=== PATIENT | female | born 1975 | race African-American/Black ===

== ENCOUNTER 2017-01-19 05:23 | Emergency (ER) | payer SELFPAY ==
--- NOTE | 2017-01-19 06:37 | ER Document Report ---
ED Extremity Problem, Lower - General Chief Complaint: Foot Pain Stated Complaint: FOOT PAIN Time Seen by Provider: 01/19/17 06:29 Notes: 41-year-old previously healthy female presents with right foot pain. It awoke her from sleep at 3:00 this morning. Throbbing sensation over the top of her foot with radiation laterally towards her knee. Denies any injury or trauma. No swelling or redness. No fever. No chest pain or breathing difficulty. No alleviating or exacerbating symptoms. TRAVEL OUTSIDE OF THE [place] IN LAST 30 DAYS: No - Related Data Allergies/Adverse Reactions: No Known Allergies Allergy (Verified 01/19/17 05:24) Past Medical History - General Last Menstrual Period: 01/03/2017 - Social History Smoking Status: Never Smoker Cigarette use (# per day): No Chew tobacco use (# tins/day): No Frequency of alcohol use: None Drug Abuse: None Family History: None Patient has suicidal ideation: No Patient has homicidal ideation: No Endocrine Medical History: Reports: Hx Diabetes Mellitus Type 2 Renal/ Medical History: Denies: Hx Peritoneal Dialysis - Immunizations Immunizations up to date: No Hx Diphtheria, Pertussis, Tetanus Vaccination: No Review of Systems - Review of Systems -: Yes All other systems reviewed and negative Physical Exam - Vital signs Vitals: Temp Pulse Resp BP Pulse Ox 98.1 F 96 18 140/88 H 98 01/19/17 05:27 01/19/17 05:27 01/19/17 05:27 01/19/17 05:27 01/19/17 05:27 - Notes Notes: GENERAL: VS as per nursing doc. Well-appearing, well-nourished and in no acute distress. HEAD: Atraumatic, normocephalic. EYES: Sclera anicteric, no conjunctival injection or discharge. ENT: Nares patent, oropharynx clear without exudates, moist mucous membranes. NECK: Supple LUNGS: Breath sounds clear to auscultation bilaterally and equal. No wheezes rales or rhonchi. HEART: Regular rate and rhythm without murmurs. ABDOMEN: Soft, non-tender BACK: No lumbar tenderness EXTREMITIES: Normal range of motion, no calf tenderness, no edema. No erythema. Area of discomfort is the dorsum of the foot which shows no asymmetry compared with the other foot. Neurovascularly intact distally. No evidence of ischemia. No pain with range of motion or palpation. Ankle and knee joint nontender without effusion. NEUROLOGICAL: Normal speech. Normal sensory and motor exams. No gross cerebellar abnormalities. PSYCH: Normal mood, normal affect. SKIN: Warm, dry, normal turgor, no lesions noted. Course - Re-evaluation Re-evalutation: 01/19/17 06:36 Objectively I do not see any significant abnormalities. Patient understands warning signs to watch for including any signs of infection. No evidence of DVT as this appears more to the dorsum of the foot and the calf is not involved. - Vital Signs Vital signs: Temp Pulse Resp BP Pulse Ox 98.1 F 96 18 140/88 H 98 01/19/17 05:27 01/19/17 05:27 01/19/17 05:27 01/19/17 05:27 01/19/17 05:27 Discharge - Discharge Clinical Impression: Foot pain, right Condition: Good Additional Instructions: Contact your primary care physician for follow-up for the next 2-3 days. Use an anti-inflammatory such as ibuprofen or Aleve for discomfort. Forms: Elevated Blood Pressure
[2017-01-19 07:01] VITALS: BP 135/80
== END 2017-01-19 06:48 | disposition home or self-care (01) ==
LOC: ER 05:23
DX: M79.671 Pain in right foot (principal); E11.9 Type 2 diabetes mellitus without complications
CPT/HCPCS: 99283

== ENCOUNTER 2017-05-07 22:03 | Emergency (ER) | payer OTHER ==
[2017-05-07 22:12] VITALS: BP 149/97
--- NOTE | 2017-05-07 22:51 | ER Document Report ---
ED General - General Chief Complaint: High Blood Sugar Stated Complaint: BLOOD SUGAR PROBLEMS Time Seen by Provider: 05/07/17 22:50 Mode of Arrival: Ambulatory Information source: Patient Notes: 41-year-old drove herself to ER, female had a feeling come over her while she was work at [employer] 45 minutes prior to arrival that scared her and she was afraid she was going to go into a diabetic coma. She developed a 2-1/2/ 5 frontal headache and took some Advil. 10 minutes later she felt like she wanted to fall asleep with sudden onset of fatigue. She then had lightheadedness, nausea, and vomited once. She then developed jitteriness and anxiousness which she feels now and the headache is mild at 1/5. History of tubal ligation. [facility] She does not take any medications. TRAVEL OUTSIDE OF THE [place] IN LAST 30 DAYS: No - Related Data Allergies/Adverse Reactions: No Known Allergies Allergy (Verified 01/19/17 05:24) Past Medical History - General Information source: Patient - Social History Smoking Status: Never Smoker Frequency of alcohol use: None Drug Abuse: None Lives with: Family Family History: None Endocrine Medical History: Reports: Hx Diabetes Mellitus Type 2 - prediabetic Renal/ Medical History: Denies: Hx Peritoneal Dialysis Past Surgical History: Reports: Hx Tubal Ligation - Immunizations Immunizations up to date: No Hx Diphtheria, Pertussis, Tetanus Vaccination: No Review of Systems - Review of Systems Constitutional: See HPI EENT: No symptoms reported Cardiovascular: No symptoms reported Respiratory: No symptoms reported Gastrointestinal: See HPI Genitourinary: No symptoms reported Female Genitourinary: No symptoms reported Musculoskeletal: No symptoms reported Skin: No symptoms reported Hematologic/Lymphatic: No symptoms reported Neurological/Psychological: See HPI Physical Exam - Vital signs Vitals: Temp Pulse Resp BP Pulse Ox 97.6 F 91 18 149/97 H 96 05/07/17 22:09 05/07/17 22:09 05/07/17 22:09 05/07/17 22:09 05/07/17 22:09 Interpretation: Normal, Hypertensive - General General appearance: Appears well, Alert, Anxious In distress: None - HEENT Head: Normocephalic, Atraumatic Eyes: Normal Conjunctiva: Normal Pupils: PERRL Mucous membranes: Normal Pharynx: Normal Neck: Supple. No: Lymphadenopathy, Thyromegally - Respiratory Respiratory status: No respiratory distress Chest status: Nontender Breath sounds: Normal Chest palpation: Normal - Cardiovascular Rhythm: Regular Heart sounds: Normal auscultation Murmur: No - Abdominal Inspection: Normal Distension: No distension Bowel sounds: Normal Tenderness: Nontender Organomegaly: No organomegaly - Back Back: Normal, Nontender. No: CVA tenderness - Extremities General upper extremity: Normal inspection, Nontender, Normal color, Normal ROM , Normal temperature General lower extremity: Normal inspection, Nontender, Normal color, Normal ROM , Normal temperature, Normal weight bearing. No: Dago's sign - Neurological Neuro grossly intact: Yes Cognition: Normal Orientation: AAOx4 Ayden Coma Scale Eye Opening: Spontaneous Ayden Coma Scale Verbal: Oriented Colby Coma Scale Motor: Obeys Commands Colby Coma Scale Total: 15 Speech: Normal Motor strength normal: LUE, RUE, LLE, RLE Sensory: Normal - Psychological Associated symptoms: Normal affect, Anxious - Skin Skin Temperature: Warm Skin Moisture: Dry Skin Color: Normal Skin irregularity: negative: Rash Course - Re-evaluation Re-evalutation: 05/08/17 00:34 Patient now tells me have a history of anemia the last time she remembers it was 9 something. She has had to have iron infusions in the past and she does not take oral iron at home. Her hemoglobin is 8.5 here with an MCV of 60. The last recorded hemoglobin at [facility] was 8.7 on January 2014. I will tell her to replace her iron orally and to follow-up with litigation legal secretary. 05/08/17 00:35 05/08/17 00:39 ct head is negative. influenza is negative 05/08/17 00:40 - Vital Signs Vital signs: Temp Pulse Resp BP Pulse Ox 97.6 F 91 18 149/97 H 96 05/07/17 22:09 05/07/17 22:09 05/07/17 22:09 05/07/17 22:09 05/07/17 22:09 - Laboratory Result Diagrams: 05/07/17 23:40 05/07/17 23:40 Laboratory results interpreted by me: 05/07/17 05/07/17 05/08/17 23:40 23:40 00:00 WBC 10.8 H Hgb 8.5 L Hct 28.3 L MCV 60 L MCH 18.0 L MCHC 30.2 L RDW 19.6 H Calcium 10.7 H Urine Protein 30 H Discharge - Discharge Clinical Impression: Elevated blood pressure reading without diagnosis of hypertension Iron (Fe) deficiency anemia Qualifiers: Iron deficiency anemia type: other iron deficiency Qualified Code(s): D50.8 - Other iron deficiency anemias Headache Qualifiers: Headache type: unspecified Headache chronicity pattern: acute headache Intractability: not intractable Qualified Code(s): R51 - Headache Fatigue Qualifiers: Fatigue type: unspecified Qualified Code(s): R53.83 - Other fatigue Condition: Good Disposition: HOME, SELF-CARE Instructions: Anemia, Iron Deficiency ([facility]), Family Physicians / Practices, Fatigue ([facility]), Headache ([facility]), High Blood Pressure ([facility]) Additional Instructions: take over the counter iron twice a day take stool softner so you don't get constipated copy of labs, CT head given to you to er if worse Forms: Return to Work Referrals: CONSTANCE RIZZO MD [ACTIVE STAFF] - 05/11/17
[2017-05-08 00:07] LABS: ALANINE AMINOTRANSFERASE 19 U/L (9-52); ALBUMIN 4.4 g/dL (3.5-5.0); ALKALINE PHOSPHATASE 100 U/L (38-126); ANION GAP 12 (5-19); ASPARTATE AMINO TRANSFERASE 22 U/L (14-36); BILIRUBIN,DIRECT 0.3 mg/dL (0.0-0.4); BILIRUBIN,TOTAL 0.3 mg/dL (0.2-1.3); BLOOD UREA NITROGEN 8 mg/dL (7-20); CALCIUM 10.7 mg/dL (8.4-10.2); CARBON DIOXIDE 26 mmol/L (22-30); CHLORIDE 105 mmol/L (98-107); GLUCOSE 109 mg/dL (75-110); POTASSIUM 4.1 mmol/L (3.6-5.0); SODIUM 143.3 mmol/L (137-145)
[2017-05-08 00:08] LABS: ABSOLUTE EOSINOPHILS # (AUTO) 0.1 10^3/uL (0.0-0.6); ABSOLUTE LYMPHOCYTES (AUTO) 2.3 10^3/uL (0.5-4.7); ABSOLUTE MONOCYTES (AUTO) 0.9 10^3/uL (0.1-1.4); ABSOLUTE NEUT (AUTO) 7.4 10^3/uL (1.7-8.2); BASOPHILS % (AUTO) 0.3 % (0-2); EOSINOPHILS % (AUTO) 0.8 % (0-6); HEMATOCRIT 28.3 % (36.0-47.0); HEMOGLOBIN 8.5 g/dL (12.0-15.5); LYMPHOCYTES % (AUTO) 21.5 % (13-45); MEAN CORPUSCULAR HGB CONC 30.2 g/dL (32.0-36.0); MONOCYTES % (AUTO) 8.7 % (3-13); PLATELET COUNT 356 10^3/uL (150-450); RED BLOOD COUNT 4.74 10^6/uL (3.72-5.28); RED CELL DISTRIBUTION WIDTH 19.6 % (11.5-14.0); SEGMENTED NEUTROPHILS % (AUTO) 68.7 % (42-78); TOTAL CELLS COUNTED % (AUTO) 100 %; WHITE BLOOD COUNT 10.8 10^3/uL (4.0-10.5)
[2017-05-08 00:20] LABS: ANISOCYTOSIS 2+; HYPOCHROMASIA 1+; OVALOCYTES 1+; PLATELET COMMENT ADEQUATE; POIKILOCYTOSIS 1+; POLYCHROMASIA SLIGHT; TARGET CELLS 1+
[2017-05-08 00:21] LABS: MEAN CORPUSCULAR VOLUME 60 fl (80-97)
--- NOTE | 2017-05-08 00:32 | RADIOLOGY REPORT (SQ) ---
EXAM DESCRIPTION: CT HEAD WITHOUT CLINICAL HISTORY: 41 years Female, headache COMPARISON: None. TECHNIQUE: No contrast. This exam was performed according to our departmental dose-optimization program, which includes automated exposure control, adjustment of the mA and/or kV according to patient size and/or use of iterative reconstruction technique. Limitation: Mild motion artifact. FINDINGS: No hemorrhage or infarct. No mass, mass effect, or midline shift. Extra-axial structures appear otherwise grossly intact. IMPRESSION: No acute findings.
[2017-05-08 00:34] LABS: APPEARANCE,URINE CLOUDY; BILIRUBIN,URINE NEGATIVE (NEGATIVE); COLOR,URINE YELLOW; GLUCOSE, URINE NEGATIVE (NEGATIVE); KETONES,URINE NEGATIVE (NEGATIVE); LEUKOCYTE ESTERASE,URINE NEGATIVE (NEGATIVE); NITRITE,URINE NEGATIVE (NEGATIVE); PROTEIN,URINE 30 mg/dL (NEGATIVE); URINE SPECIFIC GRAVITY 1.025; UROBILINOGEN,URINE NEGATIVE mg/dL (<2.0)
[2017-05-08 00:39] LABS: A TYPE INFLUENZA AG NEGATIVE (NEGATIVE); B INFLUENZA AG NEGATIVE (NEGATIVE)
[2017-05-08 11:09] LABS: PATH REVIEW PATHOLOGIST REVIEWED
== END 2017-05-08 01:00 | disposition home or self-care (01) ==
LOC: ER 22:03
DX: R03.0 Elevated blood-pressure reading, without diagnosis of hypertension (principal); D50.9 Iron deficiency anemia, unspecified; R53.83 Other fatigue; R51 Headache; R42 Dizziness and giddiness; R11.2 Nausea with vomiting, unspecified
CPT/HCPCS: 36415; 70450; 80053; 81001; 84703; 85025; 87804; 99284

== ENCOUNTER 2017-11-24 02:52 | Emergency (ER) | payer OTHER ==
[2017-11-24 02:59] VITALS: BP 134/86
[2017-11-24] MEDS ORDERED: PENICILLIN V POTASSIUM 500 MG TABLET PO ONE (03:54)
[2017-11-24] MEDS ORDERED: IBUPROFEN 600 MG TABLET PO ONE (03:55)
[2017-11-24] MEDS ORDERED: LIDOCAINE 2% VISCOUS SOLN 20 ML UDCUP PO ONE (03:55)
[2017-11-24] MEDS ORDERED: HYDROCODONE/ACETAMINOPHEN 5-325 MG (6 TAB/ER DISP) PO PRN (03:57)
--- NOTE | 2017-11-24 03:57 | ER Document Report ---
ED Oral Problem - General Chief Complaint: Toothache Stated Complaint: TOOTHACHE Time Seen by Provider: 11/24/17 03:40 Mode of Arrival: Ambulatory Information source: Patient Notes: Otherwise healthy 41-year-old female presenting with chief complaint of right lower tooth pain at tooth #32. Patient reports that this started hurting about a week ago however at that time it was just a mild nagging pain, patient reports that this morning it has gotten severe. Patient reports she tried taking Tylenol and ibuprofen at home without any relief. TRAVEL OUTSIDE OF THE [place] IN LAST 30 DAYS: No - Related Data Allergies/Adverse Reactions: No Known Allergies Allergy (Verified 01/19/17 05:24) Past Medical History - General Information source: Patient - Social History Smoking Status: Never Smoker Frequency of alcohol use: None Drug Abuse: None Family History: None Endocrine Medical History: Reports: Hx Diabetes Mellitus Type 2 - prediabetic Renal/ Medical History: Denies: Hx Peritoneal Dialysis Past Surgical History: Reports: Hx Tubal Ligation - Immunizations Immunizations up to date: No Hx Diphtheria, Pertussis, Tetanus Vaccination: No Review of Systems - Review of Systems Constitutional: No symptoms reported EENT: See HPI Cardiovascular: No symptoms reported Respiratory: No symptoms reported Gastrointestinal: No symptoms reported Genitourinary: No symptoms reported Female Genitourinary: No symptoms reported Musculoskeletal: No symptoms reported Skin: No symptoms reported Hematologic/Lymphatic: No symptoms reported Neurological/Psychological: No symptoms reported Physical Exam - Vital signs Vitals: Temp Pulse Resp BP Pulse Ox 98.3 F 65 16 134/86 H 97 11/24/17 02:58 11/24/17 02:58 11/24/17 02:58 11/24/17 02:58 11/24/17 02:58 - Notes Notes: PHYSICAL EXAMINATION: GENERAL: Well-appearing, well-nourished and in no acute distress. HEAD: Atraumatic, normocephalic. ENT: Nares patent, oropharynx clear without exudates. Moist mucous membranes. Erythema noted to right lower gumline, no drainable abscess noted. NECK: Normal range of motion, supple without lymphadenopathy Musculoskeletal: Normal range of motion, no pitting or edema. No cyanosis. NEUROLOGICAL: Cranial nerves grossly intact. Normal speech, normal gait. Normal sensory, motor exams PSYCH: Normal mood, normal affect. SKIN: Warm, Dry, normal turgor, no rashes or lesions noted. Course - Re-evaluation Re-evalutation: We will treat patient with penicillin and provide her with some pain medications. Patient will also be instructed to take ibuprofen 600 mg every 6 hours. - Vital Signs Vital signs: Temp Pulse Resp BP Pulse Ox 98.3 F 65 16 134/86 H 97 11/24/17 02:58 11/24/17 02:58 11/24/17 02:58 11/24/17 02:58 11/24/17 02:58 Discharge - Discharge Clinical Impression: Pain, dental Condition: Stable Disposition: HOME, SELF-CARE Additional Instructions: TOOTHACHE: Your pain is due to dental decay. The tooth must be repaired in order for you to feel better. You will, therefore, be referred to a dentist. We do not have dentists on the staff at [facility]. Severe swelling or drainage around a tooth usually means a dental abscess. This also requires evaluation and treatment by the dentist, but antibiotics may be prescribed while awaiting dental treatment. You should be rechecked immediately if you develop major swelling of the face, increasing pain, a lump in the jaw or gums, headache, difficulty swallowing, or fever. ORAL NARCOTIC MEDICATION: You have been given a prescription for pain control. This medication is a narcotic. It's best taken with food, as nausea can result if taken on an empty stomach. Don't operate machinery or drive within six hours of taking this medication. Do not combine this medicine with alcohol, or with any medication which can cause sedation (such as cold tablets or sleeping pills) unless you get permission from the physician. Narcotics tend to cause constipation. If possible, drink plenty of fluids and eat a diet high in fiber and fruits. Please be aware that prescription narcotics also have the potential for abuse. People become addicted to these medications because of the general sense of wellbeing that they induce. This feeling along with a significant reduction in tension, anxiety, and aggression provides a stimulating seductive quality to these drugs. Once your pain is under control, we encourage you to discard your unused narcotics. PENICILLIN V K: You have been given a prescription for Penicillin VK. Your physician has determined that this is the best antibiotic for your condition. Pen VK can be taken with meals, however more of the antibiotic gets into the bloodstream if it's taken on an empty stomach. Penicillin usually has no side effects. However, allergy to penicillins is common. If you have had an allergic reaction to any drug of the penicillin family, you should never take any other penicillin. Notify your doctor at once if you develop hives, itching, swelling, faintness, or shortness of breath. FOLLOW-UP CARE: You have been referred for follow-up care to the dentists listed below. Call the dentists office for an appointment as you were instructed or within the next two days. If you experience worsening or a significant change in your symptoms, notify the physician immediately or return to the Emergency Department at any time for re-evaluation. Prescriptions: Penicillin V Potassium [Penicillin Vk 500 mg Tablet] 500 mg PO BID #20 tablet
== END 2017-11-24 04:17 | disposition home or self-care (01) ==
LOC: ER 02:52
DX: K08.9 Disorder of teeth and supporting structures, unspecified (principal); Z98.51 Tubal ligation status
CPT/HCPCS: 99282; J3490

== ENCOUNTER 2018-07-13 12:13 | Emergency (ER) | payer OTHER ==
[2018-07-13 12:30] VITALS: BP 149/93
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
== END 2018-07-13 13:28 | disposition home or self-care (01) ==
LOC: ER 12:13
DX: S13.9XXA Sprain of joints and ligaments of unspecified parts of neck, initial encounter (principal); M54.2 Cervicalgia; V43.52XA Car driver injured in collision with other type car in traffic accident, initial encounter
CPT/HCPCS: 99283

== ENCOUNTER 2018-09-29 17:34 | Emergency (ER) | payer OTHER ==
[2018-09-29] MEDS ORDERED: TETRACAINE HCL 0.5% OPH SOLN 4 ML OS ONE (19:04)
--- NOTE | 2018-09-29 19:05 | ER Document Report ---
HPI - HPI Patient complains to provider of: right eye pain Time Seen by Provider: 09/29/18 19:04 Onset: Other - thursday Quality of pain: Achy, Throbbing Pain Level: 2 Context: Patient presents to the emergency department with complaints of right eye irritation since Thursday. She does not wear contacts. She reports that she did have a pustule in the right corner and she squeezed it up the other day. Reports when she woke up the next day she did have some matting. No erythema or swelling to the eye. Reports history of styes. No other complaints such as fever vomiting diarrhea. Associated Symptoms: None Exacerbated by: Denies Relieved by: Denies Similar symptoms previously: No Recently seen / treated by doctor: No - REPRODUCTIVE Reproductive: DENIES: : Past Medical History - General Information source: Patient - Social History Smoking Status: Unknown if Ever Smoked Family History: None Patient has suicidal ideation: No Patient has homicidal ideation: No Endocrine Medical History: Reports: Hx Diabetes Mellitus Type 2 - prediabetic Renal/ Medical History: Denies: Hx Peritoneal Dialysis Past Surgical History: Reports: Hx Tubal Ligation - Immunizations Immunizations up to date: No Hx Diphtheria, Pertussis, Tetanus Vaccination: No Vertical Provider Document - CONSTITUTIONAL Agree With Documented VS: Yes Exam Limitations: No Limitations General Appearance: WD/WN, No Apparent Distress - INFECTION CONTROL TRAVEL OUTSIDE OF THE [place] IN LAST 30 DAYS: No - HEENT HEENT: Atraumatic, Normocephalic, PERRLA. negative: Conjuctival Injection - NECK Neck: Supple - RESPIRATORY Respiratory: No Respiratory Distress - CARDIOVASCULAR Cardiovascular: Regular Rate - MUSCULOSKELETAL/EXTREMETIES Musculoskeletal/Extremeties: HEAVEN MEJIA - NEURO Level of Consciousness: Awake, Alert, Appropriate Motor/Sensory: No Motor Deficit - DERM Integumentary: Warm, Dry Course - Re-evaluation Re-evalutation: 09/29/18 19:32 Patient instructed on stye. Instructed to follow-up with enterprise application analyst and instructed not to squeeze the area anymore. She verbalized understanding to all instructions Dictation of this chart was performed using voice recognition software; therefore, there may be some unintended grammatical errors. - Vital Signs Vital signs: Temp Pulse Resp BP Pulse Ox 98.2 F 97 16 139/87 H 98 09/29/18 18:50 09/29/18 18:50 09/29/18 18:50 09/29/18 18:50 09/29/18 18:50 Procedures - Eye Procedure Right Alcaine Drops Administered: Yes - tetracaine Slit lamp used: No Notes: 09/29/18 19:28 Tetracaine applied to patient's right eye. Patient reports no irritation inside the eye. Reports pain and irritations to right upper lid. Small stye noted to the right outer upper eye lid. Eyes picture: 1 - small stye Discharge - Discharge Clinical Impression: Irritation of right eye Stye Qualifiers: Laterality: right Eyelid: upper Qualified Code(s): H00.011 - Hordeolum externum right upper eyelid Condition: Stable Disposition: HOME, SELF-CARE Instructions: Warm Packs ([facility]) Additional Instructions: *You have been evaluated for eye irritation, stye *apply warm packs *Good hand washing- do not squeeze the area *Follow up with an enterprise application analyst within one week [facility] to enterprise application analyst *Return to ED for worsening condition, changes, needs Monitor your blood pressure. Your blood pressure was elevated today. This may be because you were anxious, in pain or because you need medication. It is important to follow up with your primary care provider for full evaluation. Forms: Elevated Blood Pressure
[2018-09-29 19:45] VITALS: BP 141/84
== END 2018-09-29 19:45 | disposition home or self-care (01) ==
LOC: ER 17:34
DX: H00.011 Hordeolum externum right upper eyelid (principal)
CPT/HCPCS: 99283; J3490

== ENCOUNTER 2019-01-29 13:55 | Emergency (ER) | payer OTHER ==
--- NOTE | 2019-01-29 15:43 | ER Document Report ---
HPI - HPI Patient complains to provider of: fall, right knee pain, left wrist pain Time Seen by Provider: 01/29/19 15:21 Pain Level: 3 - CONSTITUTIONAL Constitutional: DENIES: Fever, Chills - EENT EENT: DENIES: Sore Throat, Ear Pain, Eye problems - NEURO Neurology: DENIES: Headache, Weakness, Vision blurred, Dizzinesss / Vertigo - CARDIOVASCULAR Cardiovascular: DENIES: Chest pain - RESPIRATORY Respiratory: DENIES: Trouble Breathing, Coughing - GASTROINTESTINAL Gastrointestinal: DENIES: Abdominal Pain, Black / Bloody Stools - URINARY Urinary: DENIES: Dysuria, Urgency, Frequency - REPRODUCTIVE Reproductive: DENIES: : - MUSCULOSKELETAL Musculoskeletal: REPORTS: Extremity pain Past Medical History - Social History Smoking Status: Never Smoker Chew tobacco use (# tins/day): No Frequency of alcohol use: None Drug Abuse: None Family History: None Patient has suicidal ideation: No Patient has homicidal ideation: No Endocrine Medical History: Reports: Hx Diabetes Mellitus Type 2 - prediabetic Renal/ Medical History: Denies: Hx Peritoneal Dialysis Past Surgical History: Reports: Hx Hysterectomy, Hx Tubal Ligation - Immunizations Immunizations up to date: No Hx Diphtheria, Pertussis, Tetanus Vaccination: No Vertical Provider Document - INFECTION CONTROL TRAVEL OUTSIDE OF THE [place] IN LAST 30 DAYS: No Course - Re-evaluation Re-evalutation: 01/29/19 17:38 Pt here for . advised to f/u with pcp in 1-2 days. return for any worsening symptoms. vss. well appearing. satting well on ra. neurononfocal. pt understands and agrees to plan. On reexam, pt improved with tx listed. remained stable. nontoxic. well appear ing. pain controlled. tolerating po. requesting to go home. case discussed with ER Attending, , who directed and agrees with plan of care and advised no further workup indicated at this time and pt is stable for dc home with close f/u with pcp/specialist. Documentation achieved through voice recording which may lead to some occasional accidental typographical errors. Extensive efforts have been made to proof read documentation to make sure these are the least as possible. Category Date Time Status Splint [Immobilize Extrem/Crutch (ED)] NOW Care 01/29/19 17:37 Ordered KNEE RIGHT 3 VIEWS [RAD] Stat Exams 01/29/19 15:43 Ordered WRIST LEFT 3 VIEWS [RAD] Stat Exams 01/29/19 15:43 Ordered Acetaminophen [Tylenol 325 mg Tablet] Med 01/29/19 15:44 Once 975 mg PO NOW ONE - Vital Signs Vital signs: Temp Pulse Resp BP Pulse Ox 98.1 F 85 18 136/84 H 99 01/29/19 14:05 01/29/19 14:05 01/29/19 14:05 01/29/19 14:05 01/29/19 14:05 - Diagnostic Test Radiology reviewed: Image reviewed, Reports reviewed Radiology results interpreted by me: 01/29/19 17:38 Knee X-Ray 01/29/19 15:43 IMPRESSION: NO FRACTURE. Wrist X-Ray 01/29/19 15:43 IMPRESSION: NO FRACTURE. Discharge - Discharge Clinical Impression: Occult fracture of scaphoid bone of left wrist Qualifiers: Encounter type: initial encounter Fracture type: closed Qualified Code(s): S62.002A - Unspecified fracture of navicular [scaphoid] bone of left wrist, initial encounter for closed fracture Left wrist sprain Qualifiers: Encounter type: initial encounter Qualified Code(s): S63.502A - Unspecified sprain of left wrist, initial encounter Fall Qualifiers: Encounter type: initial encounter Qualified Code(s): W19.XXXA - Unspecified fall, initial encounter Contusion of right knee Qualifiers: Encounter type: initial encounter Qualified Code(s): S80.01XA - Contusion of right knee, initial encounter Condition: Good Disposition: HOME, SELF-CARE Instructions: Possible Hidden Navicular Fracture ([facility]), Sprained Knee ([facility]), Wrist Sprain ([facility]) Additional Instructions: Follow-up with PCP/ortho in 1 to 2 days. Wear the splint until seen by the orthopedist. You may have a fracture in your left wrist that is not showing up right away as discussed given the nature of your injury. Splint care as discussed. Return for any worsening symptoms. tylenol or motrin as needed for any pain or fever if not allergic. take the medication as prescribed. Forms: Special Work Note [facility]errals: [facility] [Primary [facility] Provider] - Follow up in 3-5 days LISA MARTIN MD [ACTIVE STAFF] - Follow up as needed
[2019-01-29] MEDS ORDERED: ACETAMINOPHEN 325 MG TABLET PO ONE (15:44)
--- NOTE | 2019-01-29 16:18 | RADIOLOGY REPORT (SQ) ---
EXAM DESCRIPTION: WRIST LEFT 3 VIEWS COMPLETED DATE/TIME: 01/29/2019 4:01 pm REASON FOR STUDY: foosh injury, pos snuffbox ttp COMPARISON: None. EXAM PARAMETERS: NUMBER OF VIEWS: Three views. TECHNIQUE: AP, lateral and oblique radiographic images acquired of the left wrist. LIMITATIONS: None. FINDINGS: MINERALIZATION: Normal. BONES: No acute fracture or dislocation. No worrisome bone lesions. JOINTS: No effusion. SOFT TISSUES: No significant soft tissue swelling. No radiopaque foreign body. OTHER: No other significant finding. IMPRESSION: NO FRACTURE. TECHNICAL DOCUMENTATION: JOB ID: [id number] [place]-72 2010 [employer]- All Rights Reserved Reading location - IP/workstation name: [email or web address]
--- NOTE | 2019-01-29 16:19 | RADIOLOGY REPORT (SQ) ---
EXAM DESCRIPTION: KNEE RIGHT 3 VIEWS COMPLETED DATE/TIME: 01/29/2019 4:01 pm REASON FOR STUDY: fall, tib plateau pain COMPARISON: None. EXAM PARAMETERS: NUMBER OF VIEWS: Three views. TECHNIQUE: AP, lateral and sunrise radiographic images acquired of the right knee. LIMITATIONS: None. FINDINGS: MINERALIZATION: Normal. BONES: No acute fracture or dislocation. No worrisome bone lesions. JOINTS: No effusion. SOFT TISSUES: No significant soft tissue swelling. No radiopaque foreign body. OTHER: No other significant finding. IMPRESSION: NO FRACTURE. TECHNICAL DOCUMENTATION: JOB ID: [id number] [place]-[id number] 2010 [employer]- All Rights Reserved Reading location - IP/workstation name: [email or web address]
[2019-01-29 17:27] VITALS: BP 139/92
== END 2019-01-29 17:53 | disposition home or self-care (01) ==
LOC: ER 13:55
DX: S62.002A Unspecified fracture of navicular [scaphoid] bone of left wrist, initial encounter for closed fracture (principal); S80.01XA Contusion of right knee, initial encounter; M25.561 Pain in right knee; M25.532 Pain in left wrist; W01.0XXA Fall on same level from slipping, tripping and stumbling without subsequent striking against object, initial encounter; Y92.512 Supermarket, store or market as the place of occurrence of the external cause
CPT/HCPCS: 99283

== ENCOUNTER 2019-04-08 09:04 | Day surgery (SDC) | payer OTHER ==
[~2019-04-08 09:04] MED LIST: PROPOFOL INJ 200 MG/20 ML VIAL IV ONE
[2019-04-08 11:07] VITALS: BP 138/90
--- NOTE | 2019-04-08 11:23 | Operative Report ---
Operative Report DATE OF SURGERY: 04/08/19 Operative Report: The risks benefits and alternatives of the procedure explained to the patient in detail and informed consent is obtained.A GIF Olympus video scope was inserted into the patient's mouth and hypopharynx, the esophagus is identified intubated and insufflated, the scope was then advanced through the esophagus stomach and duodenum, retroflexion maneuver is done, the esophagus stomach and first and second portions of the duodenum examined. PREOPERATIVE DIAGNOSIS: Dysphagia POSTOPERATIVE DIAGNOSIS: Esophagitis versus Zuniga's status post biopsy. Gastritis status post biopsy. Hiatal hernia. Schatzki's ring that is broken OPERATION: EGD with biopsy SURGEON: TERRELL WHITNEY ANESTHESIA: LMAC TISSUE REMOVED OR ALTERED: As noted above. COMPLICATIONS: None. ESTIMATED BLOOD LOSS: None. INTRAOPERATIVE FINDINGS: As noted above. PROCEDURE: Patient tolerated the procedure well. No immediate postprocedure complications are noted. Patient is discharged in good condition. Discharge date 04/08/2019. Discharge diet: Regular. Discharge activity: Regular. 2 to 3-week follow-up to discuss findings. Patient is instructed to call the office or proceed to the emergency room should there be any further questions. Wait on the pathology.
== END 2019-04-08 11:06 | disposition home or self-care (01) ==
LOC: END 09:04
PROVIDERS: ATTEND Internal Medicine Gastroenterology
DX: K44.9 Diaphragmatic hernia without obstruction or gangrene (principal); K22.2 Esophageal obstruction; K29.50 Unspecified chronic gastritis without bleeding; B96.81 Helicobacter pylori [H. pylori] as the cause of diseases classified elsewhere; E78.5 Hyperlipidemia, unspecified; E66.9 Obesity, unspecified; Z68.39 Body mass index [BMI] 39.0-39.9, adult
CPT/HCPCS: 43239; 88342 ×2; 88305 ×2; 00731; J2704; 731

== ENCOUNTER → 2019-11-07 | Outpatient (CLI) | payer OTHER ==
--- NOTE | 2019-11-07 17:05 | RADIOLOGY REPORT (SQ) ---
EXAM DESCRIPTION: WRIST LEFT 3 VIEWS IMAGES COMPLETED DATE/TIME: 11/07/2019 4:30 pm REASON FOR STUDY: CHRONIC PAIN OF LEFT WRIST M25.532 PAIN IN LEFT WRIST COMPARISON: 01/29/2019 NUMBER OF VIEWS: Three views. TECHNIQUE: AP, lateral, and oblique radiographic images acquired of the left wrist. LIMITATIONS: None. FINDINGS: MINERALIZATION: Normal. BONES: No acute fracture or dislocation. No worrisome bone lesions. Normal alignment. SOFT TISSUES: No soft tissue swelling. No foreign body. OTHER: No other significant finding. IMPRESSION: No evidence of acute bony abnormality of the left wrist. No significant degenerative change. TECHNICAL DOCUMENTATION: JOB ID: [id number] 2010 [employer]- All Rights Reserved Reading location - IP/workstation name: [email or web address]
== END ==
LOC: OD 16:11
PROVIDERS: ATTEND Family Medicine
DX: M25.532 Pain in left wrist (principal)

== ENCOUNTER → 2019-11-09 | Outpatient (CLI) | payer OTHER ==
--- NOTE | 2019-11-09 10:56 | WOMENS IMAGING REPORT ---
EXAM DESCRIPTION: 3D SCREENING MAMMO BILAT IMAGES COMPLETED DATE/TIME: 11/09/2019 9:14 am REASON FOR STUDY: Z12.31 ENCNTR SCREEN MAMMOGRAM FOR MALIGNANT NEOPLASM OF BREAST Z12.31 ENCNTR SCR EEN MAMMOGRAM FOR MALIGNANT NEOPLASM OF JAYNE COMPARISON: None. EXAM PARAMETERS: Standard craniocaudal and mediolateral oblique views of each breast recorded using digital acquisition and breast tomosynthesis. Read with the assistance of CAD. .[facility] - [employer] Touch Up Painter Version 9.2 LIMITATIONS: None. FINDINGS: Findings present which are benign by mammographic criteria. No suspicious masses, calcific ations or architectural distortion. Pertinent benign findings: Multiple similar size, well-circumscribed nodular densities are seen bilat erally. Benign mammographic findings may include one or more of the following: Smooth masses, popcorn/rim/coa rse calcifications, asymmetries, post-procedure changes, and lesions with long-standing stability. IMPRESSION: BENIGN MAMMOGRAPHIC FINDINGS. BIRADS 2 BREAST DENSITY: b. There are scattered areas of fibroglandular density. BIRAD: ASSESSMENT: 2 BENIGN FINDING(S) RECOMMENDATION: ROUTINE SCREENING COMMENT: The patient has been notified of the results by letter per MQSA requirements. Additional no tification policies are in place for contacting patient with suspicious or incomplete findings. Quality ID #[id number]: The [employer] recommends an annual screening mammogram for women aged 40 years or over. This facility utilizes a reminder system to ensure that all patients receive reminder letters, and/or direct phone calls for appointments. This includes reminders for routine scr eening mammograms, diagnostic mammograms, or other Breast Imaging Interventions when appropriate. Th is patient will be placed in the appropriate reminder system. TECHNICAL DOCUMENTATION: FINDING NUMBER: (1) ASSESSMENT: (1) JOB ID: [id number] 2010 [employer]- All Rights Reserved Reading location - IP/workstation name: [email or web address]
== END ==
LOC: WI 08:30
PROVIDERS: ATTEND Family Medicine
DX: Z12.31 Encounter for screening mammogram for malignant neoplasm of breast (principal)
CPT/HCPCS: 77063; 77067

== ENCOUNTER 2019-11-25 00:36 | Emergency (ER) | payer OTHER ==
--- NOTE | 2019-11-25 00:57 | ER Document Report ---
ED Medical Screen (RME) - General Chief Complaint: Leg Swelling Stated Complaint: LEFT LEG SWELLING Time Seen by Provider: 11/25/19 00:51 Primary Care Provider: MADHURI HART DO [Primary Care Provider] - Follow up as needed Notes: Patient presents complaining of lower extremity swelling that started yesterday. Patient reports left leg is more swollen than the right. Patient does report some exertional shortness of breath. Patient denies any cough cold symptoms or chest pain. I have greeted and performed a rapid initial assessment of this patient. A comprehensive ED assessment and evaluation of the patient, analysis of test results and completion of the medical decision making process will be conducted by additional ED providers. TRAVEL OUTSIDE OF THE [place] IN LAST 30 DAYS: No - Related Data Allergies/Adverse Reactions: No Known Allergies Allergy (Verified 04/08/19 09:06) Past Medical History - Social History Family history: Reviewed & Not Pertinent - Past Medical History Cardiac Medical History: Denies: Hx Coronary Artery Disease, Hx Heart Attack, Hx Hypertension Pulmonary Medical History: Reports: Hx Bronchitis Denies: Hx Asthma, Hx COPD, Hx Pneumonia Neurological Medical History: Denies: Hx Cerebrovascular Accident, Hx Seizures Endocrine Medical History: Reports: Hx Diabetes Mellitus Type 2 - prediabetic Renal/ Medical History: Denies: Hx Peritoneal Dialysis Musculoskeltal Medical History: Denies Hx Arthritis Past Surgical History: Reports: Hx Hysterectomy, Hx Tubal Ligation - Immunizations Immunizations up to date: No Hx Diphtheria, Pertussis, Tetanus Vaccination: No Physical Exam - Vital signs Vitals: Temp Pulse Resp BP Pulse Ox 98.5 F 76 16 147/93 H 100 11/25/19 00:43 11/25/19 00:43 11/25/19 00:43 11/25/19 00:43 11/25/19 00:43 - General General appearance: Appears well, Alert Notes: Bilateral lower extremity edema, left worse than right - Respiratory Respiratory status: No respiratory distress Breath sounds: Normal Course - Vital Signs Vital signs: Temp Pulse Resp BP Pulse Ox 98.5 F 76 16 147/93 H 100 11/25/19 00:43 11/25/19 00:43 11/25/19 00:43 11/25/19 00:43 11/25/19 00:43 Doctor's Discharge - Discharge Referrals: MADHURI HART DO [Primary Care Provider] - Follow up as needed
[2019-11-25 03:12] LABS: ABSOLUTE EOSINOPHILS # (AUTO) 0.1 10^3/uL (0.0-0.6); ABSOLUTE LYMPHOCYTES (AUTO) 3.5 10^3/uL (0.5-4.7); ABSOLUTE MONOCYTES (AUTO) 0.6 10^3/uL (0.1-1.4); ABSOLUTE NEUT (AUTO) 3.7 10^3/uL (1.7-8.2); BASOPHILS % (AUTO) 0.4 % (0-2); EOSINOPHILS % (AUTO) 1.8 % (0-6); HEMATOCRIT 33.1 % (36.0-47.0); HEMOGLOBIN 10.4 g/dL (12.0-15.5); LYMPHOCYTES % (AUTO) 44.2 % (13-45); MEAN CORPUSCULAR HEMOGLOBIN 21.7 pg (27.0-33.4); MEAN CORPUSCULAR HGB CONC 31.4 g/dL (32.0-36.0); MEAN CORPUSCULAR VOLUME 69 fl (80-97); MONOCYTES % (AUTO) 6.9 % (3-13); PLATELET COUNT 274 10^3/uL (150-450); RED CELL DISTRIBUTION WIDTH 17.3 % (11.5-14.0); SEGMENTED NEUTROPHILS % (AUTO) 46.7 % (42-78); TOTAL CELLS COUNTED % (AUTO) 100 %
[2019-11-25 03:28] LABS: ALBUMIN 4.1 g/dL (3.5-5.0); ALKALINE PHOSPHATASE 118 U/L (38-126); ANION GAP 7 (5-19); ASPARTATE AMINO TRANSFERASE 36 U/L (14-36); BILIRUBIN,TOTAL 0.4 mg/dL (0.2-1.3); BLOOD UREA NITROGEN 12 mg/dL (7-20); CALCIUM 9.1 mg/dL (8.4-10.2); CARBON DIOXIDE 26 mmol/L (22-30); CHLORIDE 106 mmol/L (98-107); GLUCOSE 119 mg/dL (75-110); TOTAL PROTEIN 7.4 g/dL (6.3-8.2)
--- NOTE | 2019-11-25 03:39 | RADIOLOGY REPORT (SQ) ---
EXAM DESCRIPTION: [employer]Lex: XR CHEST 1 VIEW CLINICAL HISTORY: 43 years Female; exertional sob, LE edema; COMPARISON: None. FINDINGS: Lungs: Lungs are clear, with no focal infiltrate, pneumothorax, or pleural effusion. Mediastinum: Mediastinum is within normal limits for this positioning. Bones: Bony structures are unremarkable. IMPRESSION: 1. No acute pulmonary findings.
[2019-11-25] MEDS ORDERED: IBUPROFEN 800 MG TABLET PO ONE (06:53)
[2019-11-25 07:25] LABS: APPEARANCE,URINE SLIGHTLY-CLOUDY; BILIRUBIN,URINE NEGATIVE (NEGATIVE); COLOR,URINE YELLOW; GLUCOSE, URINE NEGATIVE (NEGATIVE); KETONES,URINE NEGATIVE (NEGATIVE); LEUKOCYTE ESTERASE,URINE NEGATIVE (NEGATIVE); NITRITE,URINE NEGATIVE (NEGATIVE); PROTEIN,URINE NEGATIVE (NEGATIVE); URINE SPECIFIC GRAVITY 1.029
--- NOTE | 2019-11-25 09:21 | ER Document Report ---
Entered by LION MCDONALD SCRIBE 11/25/19 0658 Acting as scribe for:AL ORANTES MD ED Extremity Problem, Lower - General Chief Complaint: Feet Swelling Stated Complaint: LEFT LEG SWELLING Time Seen by Provider: 11/25/19 00:51 Primary Care Provider: MADHURI HART DO [Primary Care Provider] - Follow up as needed Information source: Patient Notes: This 43 year old female patient presents to the emergency department today with complaints of swelling in her lower extremities L>R. Patient states this began yesterday with swelling in her feet and then it traveled up her calves. Denies pain in LE or standing more than usual. Patient denies chest pain and reports shortness of breath only when climbing up stairs. Patient reports gaining x22 pounds the last x2 months. TRAVEL OUTSIDE OF THE [place] IN LAST 30 DAYS: No - Related Data Allergies/Adverse Reactions: No Known Allergies Allergy (Verified 04/08/19 09:06) Home Medications: motrin prn Past Medical History - General Information source: Patient - Social History Smoking Status: Never Smoker Cigarette use (# per day): No Family History: None Patient has homicidal ideation: No Pulmonary Medical History: Reports: Hx Bronchitis Endocrine Medical History: Reports: Hx Diabetes Mellitus Type 2 - prediabetic Past Surgical History: Reports: Hx Hysterectomy, Hx Tubal Ligation - Immunizations Immunizations up to date: No Hx Diphtheria, Pertussis, Tetanus Vaccination: No Review of Systems - Review of Systems Constitutional: See HPI, Weight gain EENT: No symptoms reported Cardiovascular: See HPI. denies: Chest pain Respiratory: See HPI, Short of breath Gastrointestinal: No symptoms reported Genitourinary: No symptoms reported Female Genitourinary: No symptoms reported Musculoskeletal: See HPI, Leg swelling - L>R Skin: No symptoms reported Hematologic/Lymphatic: No symptoms reported Neurological/Psychological: No symptoms reported -: Yes All other systems reviewed and negative Physical Exam - Vital signs Vitals: Temp Pulse Resp BP Pulse Ox 98.5 F 76 16 147/93 H 100 11/25/19 00:43 11/25/19 00:43 11/25/19 00:43 11/25/19 00:43 11/25/19 00:43 - General General appearance: Appears well, Alert - HEENT Head: Normocephalic, Atraumatic Eyes: Normal Pupils: PERRL - Respiratory Respiratory status: No respiratory distress Chest status: Nontender Breath sounds: Normal Chest palpation: Normal - Cardiovascular Rhythm: Regular Heart sounds: Normal auscultation Murmur: No - Abdominal Inspection: Obese Distension: No distension Bowel sounds: Normal Tenderness: Nontender - Extremities General upper extremity: Normal inspection. No: Edema Notes: Non-pitting edema of bilateral lower extremities. No tenderness with palpation to bilateral calves. - Neurological Neuro grossly intact: Yes Cognition: Normal Orientation: AAOx4 Speech: Normal - Psychological Associated symptoms: Normal affect, Normal mood - Skin Skin Temperature: Warm Skin Moisture: Dry Skin Color: Normal Course - Re-evaluation Re-evalutation: 11/25/19 09:18 Patient resting comfortably not showing any signs of distress. - Vital Signs Vital signs: Temp Pulse Resp BP Pulse Ox 97.8 F 72 16 153/87 H 98 11/25/19 08:14 11/25/19 08:14 11/25/19 08:14 11/25/19 08:14 11/25/19 08:14 11/25/19 09:18 Vital signs shows systolic diastolic hypertension at 153/87. Otherwise normal respirations pulse 72 oxygenation 98% and afebrile. - Laboratory Result Diagrams: 11/25/19 02:55 11/25/19 02:55 Laboratory results interpreted by me: 11/25/19 11/25/19 11/25/19 02:55 02:55 07:06 Hgb 10.4 L Hct 33.1 L MCV 69 L MCH 21.7 L MCHC 31.4 L RDW 17.3 H Glucose 119 H ALT 48 H Urine Blood MODERATE H Urine Urobilinogen 2.0 H 11/25/19 09:19 Labs are within normal range except there is moderate blood in the urine. - Diagnostic Test Radiology reviewed: Image reviewed, Reports reviewed Radiology results interpreted by me: 11/25/19 09:19 Preliminary ultrasound of lower extremities venous studies shows no DVT in either lower extremity. - EKG Interpretation by Me Additional EKG results interpreted by me: 11/25/19 09:21 Twelve-lead EKG shows normal sinus rhythm rate of 64 no acute changes. Discharge - Discharge Clinical Impression: Peripheral edema Condition: Stable Disposition: HOME, SELF-CARE Additional Instructions: Edema, Peripheral You have swelling in your legs. This is called peripheral edema. It can be caused by "leaky capillaries," inflammation, disease of the leg veins, or excess salt and water in your body. Edema may be a sign of heart, kidney, or liver disease. A medical evaluation can determine if there is a serious underlying cause for your edema. Avoid prolonged standing. If you must sit for a long time, occasionally get up and walk around or elevate your legs. Support stockings can be helpful in limiting swelling. Often diuretic or water pills are used to remove excess salt and water from your body. Call the doctor or return if you develop increased swelling, pain, or redness, shortness of breath, chest pain, or any other significant change. Referrals: MADHURI HART, DO [Primary Care Provider] - Follow up as needed I personally performed the services described in the documentation, reviewed and edited the documentation which was dictated to the scribe in my presence, and it accurately records my words and actions.
--- NOTE | 2019-11-25 09:33 | RADIOLOGY REPORT (SQ) ---
EXAM DESCRIPTION: VENOUS BILATERAL LOWER IMAGES COMPLETED DATE/TIME: 11/25/2019 9:22 am REASON FOR STUDY: bilateral leg swelling COMPARISON: None. TECHNIQUE: Dynamic and static william scale and color images acquired of both lower extremity venous sy stems. Selected spectral images acquired with additional compression and augmentation maneuvers. Imag es stored on PACS. LIMITATIONS: None. FINDINGS: RIGHT LEG COMMON FEMORAL AND FEMORAL: Normal phasicity, compression and augmentation. No visualized echogenic m aterial on william scale. No defects on color images. POPLITEAL: Normal compression and augmentation. No visualized echogenic material on william scale. No de fects on color images. CALF VESSELS: Normal compression and augmentation. No visualized echogenic material on william scale. No defects on color image. GSV AND SSV: Normal compression. No visualized echogenic material on william scale. No defects on color images. ANY DEEP VENOUS INSUFFICIENCY: No. ANY EVIDENCE OF POPLITEAL CYST: No. OTHER: No other significant finding. LEFT LEG COMMON FEMORAL AND FEMORAL: Normal phasicity, compression and augmentation. No visualized echogenic m aterial on william scale. No defects on color images. POPLITEAL: Normal compression and augmentation. No visualized echogenic material on william scale. No de fects on color images. CALF VESSELS: Normal compression and augmentation. No visualized echogenic material on william scale. No defects on color images. GSV AND SSV: Normal compression. No visualized echogenic material on william scale. No defects on color images. ANY DEEP VENOUS INSUFFICIENCY: No. ANY EVIDENCE POPLITEAL CYST: No. OTHER: No other significant finding. IMPRESSION: NO EVIDENCE DVT OR SVT IN EITHER LEG. TECHNICAL DOCUMENTATION: JOB ID: [id number] 2010 [employer]- All Rights Reserved Reading location - IP/workstation name: [email or web address]
[2019-11-25 09:36] VITALS: BP 140/90
--- NOTE | 2019-11-26 10:21 | EKG REPORT ---
SEVERITY:- NORMAL ECG - SINUS RHYTHM : Confirmed by: Estrada Gann 26-Nov-2019 10:20:42
== END 2019-11-25 09:36 | disposition home or self-care (01) ==
LOC: ER 00:36
DX: R60.0 Localized edema (principal); R63.5 Abnormal weight gain; R73.03 Prediabetes
CPT/HCPCS: 36415; 71045; 80053; 81001; 85025; 93005; 93010; 93970; 99284

== ENCOUNTER 2020-02-29 16:26 | Emergency (ER) | payer OTHER ==
[2020-02-29 16:42] VITALS: BP 149/89
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
[2020-02-29] MEDS ORDERED: IBUPROFEN 800 MG TABLET PO ONE (17:08)
== END 2020-02-29 17:14 | disposition home or self-care (01) ==
LOC: ER 16:26
DX: M79.10 Myalgia, unspecified site (principal); V87.7XXA Person injured in collision between other specified motor vehicles (traffic), initial encounter; Z90.710 Acquired absence of both cervix and uterus
CPT/HCPCS: 99283